=== PATIENT | male | born 1975 | race Caucasian/White ===

== ENCOUNTER 2017-06-19 10:27 | Emergency (ER) | payer OTHER, MEDICAID ==
[2017-06-19 11:01] LABS: % IMMATURE GRANULYOCYTES 0.5 % (0.0-1.1); ABSOLUTE IMMATURE GRANULOCYTES 0.03 10^3/uL (0.00-0.10); ADD DIFF? NO; ADD MORPH? NO; ADD SCAN? NO; ATYPICAL LYMPHOCYTE FLAG 0 (0-99); FRAGMENT RBC FLAG 0 (0-99); HEMATOCRIT 43.1 % (40.0-51.0); HEMOGLOBIN 15.3 g/dL (13.7-17.5); LEFT SHIFT FLG 0 (0-99); LIPEMIA HEMOLYSIS FLAG 90 (0-99); MEAN CELL HEMOGLOBIN CONCENTR. 35.5 g/dL (32.4-36.7); MEAN CELL VOLUME 87.4 fL (81.5-99.8); MEAN PLATELET VOLUME 9.4 fL (8.7-11.7); PLATELET CLUMPS FLAG 10 (0-99); PLATELET COUNT 237 10^3/uL (150-400); RED BLOOD CELL COUNT 4.93 10^6/uL (4.40-6.38); RED CELL DISTRIBUTION WIDTH 12.5 % (11.5-15.2)
--- NOTE | 2017-06-19 11:01 | EDPHY ---
H & P Smoking Status: Unknown if ever smoked Time Seen by Provider: 06/19/17 10:39 HPI/ROS: CHIEF COMPLAINT: Paranoid schizophrenia, noncompliant with medication HISTORY OF PRESENT ILLNESS: 41-year-old male presents to the emergency department with a history of paranoid schizophrenia. He is a resident at [facility] and apparently has been noncompliant with his medications for the last 12 days. He is delusional. He is not suicidal or homicidal. He has no physical complaints. No chest pain or difficulty breathing. No abdominal pain. No reported trauma. No substance abuse or alcohol. Patient states that his doctor "took him off all of his medication." He is not suicidal or homicidal. REVIEW OF SYSTEMS: Constitutional: No fever, no chills. Eyes: No double or blurry vision. ENT: No sore throat. Respiratory: No cough, no shortness of breath. Cardiac: No chest pain. Gastrointestinal: No abdominal pain, vomiting or diarrhea. Genitourinary: No dysuria. Musculoskeletal: No neck or back pain. Skin: No rashes. Neurological: No headache. (Hazel Lozano) Past Medical/Surgical History: Paranoid schizophrenia (Hazel Lozano) Social History: [facility] Physical Exam: General Appearance: Alert, no distress. No visible signs of trauma to his head. Eyes: Pupils equal and round. Extraocular motions are all intact. ENT: Mouth: Mucous membranes moist. Respiratory: No wheezing, rhonchi, or rales, lungs are clear to auscultation. Cardiovascular: Regular rate and rhythm. Gastrointestinal: Abdomen is soft and nontender, no masses, no rebound or guarding, bowel sounds normal. Neurological: Uncooperative, cannot determine. Skin: Warm and dry, no rashes. Musculoskeletal: Nontender to palpate along the cervical, thoracic or lumbar spine. Neck is supple. Extremities: Full range of motion and no peripheral edema. Psychiatric: mildly agitated agitation. (Hazel Lozano) Constitutional: Initial Vital Signs Temperature (C) 37 C 06/19/17 10:27 Heart Rate 78 06/19/17 10:27 Respiratory Rate 20 06/19/17 10:27 Blood Pressure 139/103 H 06/19/17 10:27 O2 Sat (%) 97 06/19/17 10:27 O2 Delivery Mode Room Air Allergies/Adverse Reactions: No Known Allergies Allergy (Verified 06/19/17 10:37) Home Medications: Medication Instructions Recorded ARIPIPRAZOLE [Abilify 30mg] 45 mg PO DAILY 09/22/13 Benztropine Mesylate [Cogentin 1 mg PO HS 09/22/13 (RX)] LORazepam [Ativan 1 mg (RX)] 2 mg PO BID 09/22/13 Levothyroxine [Synthroid 50 mcg 50 mcg PO DAILY06 09/22/13 (RX)] OLANZapine [Olanzapine Odt] 40 mg PO DAILY 09/22/13 Polyethylene Glycol 3350 [Miralax 17 gm PO BID 09/22/13 17 gm (OTC)] fluPHENAZine HCL [Prolixin] 15 mg PO DAILY 09/22/13 fluPHENAZine HCL [Prolixin] 25 mg PO HS 09/22/13 Acetaminophen [Tylenol Tablet] 650 mg PO Q4 PRN 10/17/13 Cefuroxime Axetil [Ceftin (RX)] 500 mg PO BID 10/17/13 Docusate Sodium [Colace Oral 50 - 100 mg PO BID 10/17/13 Liquid] Epoetin Flash [Procrit 15416 10,000 unit SC Q7D 10/17/13 UNIT/ML (RX)] Famotidine [Pepcid 20 MG (OTC)] 20 mg PO HS 10/17/13 Psyllium Husk (with Sugar) 1 each PO DAILY 10/17/13 [Metamucil Packet] Medical Decision Making ED Course/Re-evaluation: 41-year-old male presents to the emergency department on M1 hold. He has a history of paranoid schizophrenia and has court-ordered medications which she has not been taking over last 12 days. The patient has been medically cleared and is awaiting mental health evaluation. (Hazel Lozano) 6:25 p.m. the patient has been evaluated by Mental Health. They plan to admit for low get however for [facility] does not have availability until tomorrow. The patient will stay here overnight. [address] Danni Thomson (Ramy Cadet) 7:00 a.m.- . The patient will be transferred later today to [facility]. He has been accepted though go there is not bed availability until later today. The case will be signed out to the oncoming provider Dr. Dominguez. (Natali Thomson) Differential Diagnosis: Depression including functional and major depression, situational depression, medication side effect, drugs and alcohol abuse. (Hazel Lozano) Care Turn Over: Care will be turned over to Dr. Ramy Cadet for disposition and plan. (Hazel Lozano) - Data Points Laboratory Results: Laboratory Results 06/19/17 10:40 06/19/17 10:40 Departure - Departure Disposition: Other Psych, Not [place] Clinical Impression: Paranoid schizophrenia Condition: Good Referrals: Patient,NotPresent [Unknown] - As per Instructions
--- NOTE | 2017-06-19 11:08 | CPEKG ---
Heart Rate: 55 RR Interval: 1091 P-R Interval: 172 QRSD Interval: 92 QT Interval: 368 QTC Interval: 352 P [place]: 51 QRS [place]: 70 T Wave [place]: 47 EKG Severity - NORMAL ECG - EKG Impression: SINUS RHYTHM Electronically Signed By: Ioana Dominguez 21-Jun-2017 09:27:01
[2017-06-19 11:11] LABS: ANION GAP 10 mEq/L (8-16); CARBON DIOXIDE 27 mEq/l (22-31); CHLORIDE 101 mEq/L (97-110); CREATININE 0.8 mg/dL (0.7-1.3); ETHANOL SERUM < 10 mg/dL (0-10); GLOMERULAR FILTRATION RATE > 60; GLUCOSE 93 mg/dL (70-100); POTASSIUM 4.1 mEq/L (3.5-5.2); SODIUM 138 mEq/L (134-144)
[2017-06-19 12:18] LABS: ALBUMIN 4.5 g/dL (3.5-5.0); BILIRUBIN,TOTAL 0.7 mg/dL (0.1-1.4); BILIRUBIN-CONJUGATED 0.3 mg/dL (0.0-0.5); BILIRUBIN-UNCONJUGATED 0.4 mg/dL (0.0-1.1); TOTAL PROTEIN 7.8 g/dL (6.3-8.2)
--- NOTE | 2017-06-19 15:48 | ASMTCMCOM ---
CM Note CM Note Notes: Case Management: Patient brought to ER from [place] on an M1 hold. Chart reviewed and call made to María DAILY at . Per Dr. Aron Daniel placed patient on an M1 hold prior to transfer to the ER for the purpose of having patient "medically cleared" prior to pending transfer to [facility] (for IP psychiatric stabilization). I have discussed this with [facility] mental health worker ([facility]) who states that patient will be further evaluated per [facility]. [facility] will follow and work on dispostion/coordinate transfer to [facility] CM available prn for assistance with D/C planning Date Signed: 06/19/2017 03:47 PM Electronically Signed By:Joy Elizabeth
[2017-06-20] MEDS ORDERED: BENZTROPINE MESYLATE 2 MG TAB PO ONE (08:45)
[2017-06-20] MEDS ORDERED: BENZTROPINE MESYLATE 2 MG/2 ML INJ IM ONE (08:59)
[2017-06-20] MEDS ORDERED: PARoxetine HCL 20 MG TAB PO SCH (09:00)
[2017-06-20] MEDS ORDERED: ARIPiprazole 5 MG TAB PO SCH (09:00)
[2017-06-20] MEDS ORDERED: BENZTROPINE MESYLATE 1 MG TAB PO ONE (09:02)
[2017-06-20 12:29] VITALS: BP 132/76; PULSE 80; RESP 15; TEMP 98.4; O2SAT 96
[2017-06-21] MEDS ORDERED: LEVOTHYROXINE 50 MCG TAB PO SCH (06:00)
== END 2017-06-20 12:29 ==
LOC: EDUNIT#
DX: F20.0 Paranoid schizophrenia (principal)
CPT/HCPCS: 80305; G0480; J0515

== ENCOUNTER 2018-03-28 23:12 | Emergency (ER) | payer OTHER, MEDICAID ==
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
[2018-03-28 23:54] LABS: PLATELET COUNT 210 10^3/uL (150-400)
[2018-03-29] MEDS ORDERED: ONDANSETRON 4 MG/2 ML VIAL ONE (20:49)
[2018-03-30 15:19] VITALS: BP 125/75
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
== END 2018-03-30 15:19 ==
LOC: EDUNIT# → EEVIPCON 23:12
DX: F91.8 Other conduct disorders (principal); F20.89 Other schizophrenia
CPT/HCPCS: 80305; G0480; J2405

== ENCOUNTER 2019-01-01 13:34 | Emergency (ER) | payer MEDICAID, OTHER ==
[2019-01-01] MEDS ORDERED: HALOPERIDOL LACT 5 MG/ML INJ ONE (13:38)
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
[2019-01-01] MEDS ORDERED: HALOPERIDOL LACT 5 MG/ML INJ IVP ONE (14:02)
[2019-01-01 14:50] LABS: PLATELET COUNT 301 10^3/uL (150-400)
[2019-01-01 15:18] LABS: CREATINE KINASE 107 IU/L (0-224)
[2019-01-01] MEDS ORDERED: PARoxetine HCL 10 MG/5 ML UDL PO ONE (16:46)
--- NOTE | 2019-01-01 17:12 | ASMTTCLDSP ---
[facility] Discharge Disposition Disposition: Answers: Discharge Disposition Notes: Notes: PT will return to [facility] after taking daily his medications. M1 Hold is not valid because pt is already certified. Discharge Concerns/Recommendations: Notes: The Pt is currently on a [facility] certification for care and court ordered medication. PT refused two of his daily meds and decompensated to the point staff feared for safety. Now that the PT has been treated with emergency mediction and is not longer a risk and has taken his daily medications he can return to [facility]. Pt's symptoms are chroninc, and a safetyplan was discussed with nursing staff. Psychiatrist vacating M1 Ramy Cadet MD Hold: Type of Hold: Answers: M1/72-hour Hold Hold initiated by: Answers: ED Physician Date Signed: 01/01/2019 05:10 PM Electronically Signed By:Michael Sanchez
[2019-01-01] MEDS ORDERED: PARoxetine HCL 10 MG TAB PO ONE (18:00)
[2019-01-01 18:54] VITALS: BP 119/78
[2019-01-02] MEDS ORDERED: ARIPiprazole 5 MG TAB PO ONE (16:45)
== END 2019-01-01 18:55 | disposition home or self-care (01) ==
LOC: EDUNIT#
DX: F20.89 Other schizophrenia (principal); Z91.14 Patient's other noncompliance with medication regimen
CPT/HCPCS: 96374; 99284; J1630; 80305; G0480

== ENCOUNTER 2019-02-28 07:47 | Emergency (ER) | payer OTHER ==
[2019-02-28] MEDS ORDERED: OLANZapine DISINTEGR 5 MG TAB ONE (07:58)
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
[2019-02-28 08:44] LABS: PLATELET COUNT 218 10^3/uL (150-400)
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
[2019-03-01 10:10] VITALS: BP 126/76
== END 2019-03-01 10:17 | disposition home or self-care (01) ==
DX: F20.0 Paranoid schizophrenia (principal); F32.9 Major depressive disorder, single episode, unspecified
CPT/HCPCS: 80305; G0480